=== PATIENT | male | born 1945 | race Two or more races ===

== ENCOUNTER 2016-08-09 12:17 | Inpatient (IN) | payer MEDICAID ==
[2016-08-09] VITALS (12 sets, daily range): BP systolic 112–136; BP diastolic 60–85
[~2016-08-09] VITALS: Ht 162.6 cm; Wt 54.4 kg
--- NOTE | 2016-08-09 12:17 | NUR ---
PT SELF PRESENTS TO ED: WEAKNESS, PALE SKIN, CHEST PAIN X 2 WKS. PLACED ON MONITOR. VSS. AWAITING MD ORDER
--- NOTE | 2016-08-09 12:37 | NUR ---
LAC #20 IV ACCESS. BLOOD SAMPLE COLLECTED SENT TO LAB
--- NOTE | 2016-08-09 12:42 | NUR ---
SOLE LEVELING MACHINE OPERATOR AT BEDSIDE
--- NOTE | 2016-08-09 12:46 | NUR ---
PANEL CALL. DR SPENCER PAGED.
[2016-08-09 12:51] LABS: BASOPHILS # (AUTO) 0.1 /CMM (0.0-0.2); BASOPHILS % (AUTO) 0.8 % (0.0-2.0); EOSINOPHILS # (AUTO) 0.3 /CMM (0.0-0.7); EOSINOPHILS % (AUTO) 3.1 % (0.0-6.0); LYMPHOCYTES # (AUTO) 2.2 /CMM (0.8-4.8); LYMPHOCYTES % (AUTO) 25.7 % (20.0-44.0); MEAN CORPUSCULAR HEMOGLOBIN 25 PG (26.0-33.0); MEAN CORPUSCULAR HGB CONC 32 g/dl (31.0-36.0); MEAN CORPUSCULAR VOLUME 77 fL (80-96); MONOCYTES # (AUTO) 0.5 /CMM (0.1-1.30); NEUTROPHILS # (AUTO) 5.5 /CMM (1.8-8.9); NEUTROPHILS % (AUTO) 64.4 % (43.0-81.0); PLATELET COUNT (AUTO) 283 /CMM (150-450); RDW COEFFICIENT OF VARIATION 17.7 (11.5-15.0); WHITE BLOOD COUNT (AUTO) 8.6 K/uL (4.3-11.0)
[2016-08-09 12:53] LABS: RED BLOOD CELL COUNT(AUTO) 1.86 MIL/uL (4.5-6.0)
[2016-08-09 12:58] LABS: CALCIUM, SERUM 7.8 mg/dL (8.5-10.1); CARBON DIOXIDE 28 mmol/L (21-32); CHLORIDE 108 mmol/L (98-107); GFR 74 mL/min (>60); GLUCOSE 106 mg/dL (74-106); HEMATOCRIT 14 % (39-51); HEMOGLOBIN 4.6 g/dL (13.5-17.5); POTASSIUM 4.6 mmol/L (3.5-5.1); SODIUM SERUM 140 mmol/L (136-145); UREA NITROGEN, BLOOD 21 mg/dL (7-18)
[2016-08-09 13:02] LABS: INR 1.01 (0.87-1.13); PROTHROMBIN TIME 10.5 SECS (9.5-12.7)
--- NOTE | 2016-08-09 13:03 | NUR ---
DR VICTORINO OLIVERA
[2016-08-09 13:05] LABS: ALANINE AMINOTRANSFERASE 33 U/L (12-78); ALBUMIN 3.3 g/dL (3.4-5.0); ALKALINE PHOSPHATASE 96 U/L (46-116); ASPARTATE AMINOTRANSFERASE 28 U/L (15-37); BILIRUBIN,DIRECT 0.1 mg/dL (0.0-0.2); BILIRUBIN,TOTAL 0.3 mg/dL (0.2-1.0); TROPONIN I < 0.017 ng/mL (0.00-0.056)
--- NOTE | 2016-08-09 13:32 | NUR ---
DR GLEASON SECOND PAGE
--- NOTE | 2016-08-09 13:49 | NUR ---
GAVE REPORT TO MIGUE HINTON COVERING FOR BUTCH. [facility] ROOM 109 . CHEST PAIN AND ADNEMIA. DR GLEASON ADMITTTING.
--- NOTE | 2016-08-09 14:15 | NUR ---
RN NOTES PT RECEIVED FROM ER IN ROOM 109, PT IS A/Ox4, UKRAINIAN SPEAKING , RESPIRATION EVEN AND UNLABORED, ON RA NO SOB NOTED O2 SAT 99%. ON TELE PT IS SR IN 80'S , AMBULATORY , L AC IV SITE G# 18 CDI, SR UP x3, BED LOCKED AND IN LOW POSITION , PT WILL RECEIVE BLOOD TRANSFUSION SOON THE BLOOD IS READY , NO SKIN ISSUE NOTED, CONTINUE TO MONITOR PT CLOSELY AND NOTIFY MD FOR ANY SIGNIFICANT CHANGES .
[2016-08-09 14:16] LABS: BAND % (MANUAL) 1 % (0.0-5.0); EOSINOPHILS % (MANUAL) 4 % (0-4); HYPOCHROMASIA 2+; LYMPHOCYTES % (MANUAL) 12 % (16-48); MONOCYTES % (MANUAL) 3 % (0-11.0); NEUTROPHILS % (MANUAL) 80 (42-76); PLATELET ESTIMATE ADEQUATE
[2016-08-09 14:17] LABS: ANISOCYTOSIS 3+
--- NOTE | 2016-08-09 14:17 | NUR ---
TRANSFER PT VIA ACLS PROTOCOL
[2016-08-09] MEDS ORDERED: IV NS 0.9% 250 ML IV ONE (14:40)
[2016-08-09] MEDS ORDERED: BLOOD IV SET 1 EA INFUS.SET MC ONE (14:40)
[2016-08-09] MEDS ORDERED: ONDANSETRON HCL/PF 4 MG/2 ML VIAL IV PRN (16:00)
[2016-08-09] MEDS ORDERED: ACETAMINOPHEN ES 500 MG TABLET PO PRN (16:00)
[2016-08-09] MEDS ORDERED: LOSA1TAB39 PO (16:15)
[2016-08-09] MEDS ORDERED: ENAL5TAB PO (16:15)
[2016-08-09] MEDS ORDERED: TAMS0.4C34 PO (16:15)
[2016-08-09] MEDS ORDERED: TERA2CAP4 PO (16:15)
[2016-08-09] MEDS ORDERED: CARV3.122 PO (16:15)
[2016-08-09] MEDS: CARVEDILOL 3.125 MG TABLET PO SCH (17:13)
[2016-08-09] MEDS: PANTOPRAZOLE 40 MG VIAL IV SCH (17:13)
--- NOTE | 2016-08-09 17:45 | NUR ---
RN NOTES FIRST UNIT OF PRBC COMPLETED PT TOLERATED WELL NO DISTRESS NOTED .
--- NOTE | 2016-08-09 18:44 | NUR ---
RN NOTES PT RECEIVING SECOND UNIT OF BLOOD , TOLERATING WELL , NO REACTION NOTED, SUPPORTIVE FAMILY AT THE BEDSIDE ,
--- NOTE | 2016-08-09 20:00 | NUR ---
RN NOTES - RECEIVED PATIENT IN BED ASLEEP WITH BREATHING NORMAL, EVEN AND UNLABORED. NO SOB NOTED. NO ACUTE DISTRESS NOTED. DENIES ANY PAIN OR DISCOMFORT. PT HAS L AC 18G PATENT AND INTACT. BOWEL SOUND PRESENT. PULSES PRESENT. PT IS RECEIVING 2ND PRBC/4 PRBC TOTAL. SAFETY MEASURE OBSERVED. ALL NEEDS ATTENDED. CALL LIGHT WITH IN REACH. WILL CONT TO MONITOR.
[2016-08-09] MEDS: TAMSULOSIN 0.4 MG CAP.SR.24H PO SCH (21:59)
[2016-08-09] MEDS ORDERED: FUROSEMIDE 40 MG/4 ML VIAL ONE (23:37)
--- NOTE | 2016-08-09 23:45 | NUR ---
PT COMPLAINING OF SHORTNESS OF BREATH, PT IS ON 3RD BAG OF BLOOD, PT WAS GIVEN TYLENOL AND I CALLED DR GLEASON, HE ORDERED 40 MG OF LASIX IV, GIVEN. PT EXPLAINED PLAN OF CARE, SHORTNESS OF BREATH RELIEVED, PT FEELING BETTER NOW
[2016-08-10] VITALS (10 sets, daily range): BP systolic 102–141; BP diastolic 56–90
[2016-08-10] MEDS ORDERED: FUROSEMIDE 40 MG/4 ML VIAL IV SCH
[2016-08-10] MEDS ORDERED: FUROSEMIDE 40 MG/4 ML VIAL IV ONE
[2016-08-10] MEDS ORDERED: IV SET PRIMARY PUMP SET 1 EA INFUS.SET MC ONE (03:48)
[2016-08-10 06:53] LABS: BASOPHILS # (AUTO) 0.1 /CMM (0.0-0.2); BASOPHILS % (AUTO) 1.1 % (0.0-2.0); EOSINOPHILS # (AUTO) 0.2 /CMM (0.0-0.7); EOSINOPHILS % (AUTO) 2.9 % (0.0-6.0); HEMATOCRIT 27 % (39-51); HEMOGLOBIN 8.7 g/dL (13.5-17.5); LYMPHOCYTES # (AUTO) 1.8 /CMM (0.8-4.8); LYMPHOCYTES % (AUTO) 24.1 % (20.0-44.0); MEAN CORPUSCULAR HEMOGLOBIN 26 PG (26.0-33.0); MEAN CORPUSCULAR HGB CONC 32 g/dl (31.0-36.0); MEAN CORPUSCULAR VOLUME 81 fL (80-96); MONOCYTES # (AUTO) 0.4 /CMM (0.1-1.30); MONOCYTES % (AUTO) 5.5 % (2.0-12.0); NEUTROPHILS # (AUTO) 4.8 /CMM (1.8-8.9); NEUTROPHILS % (AUTO) 66.4 % (43.0-81.0); PLATELET COUNT (AUTO) 181 /CMM (150-450); RED BLOOD CELL COUNT(AUTO) 3.33 MIL/uL (4.5-6.0); WHITE BLOOD COUNT (AUTO) 7.3 K/uL (4.3-11.0)
[2016-08-10 07:08] LABS: CALCIUM, SERUM 7.7 mg/dL (8.5-10.1); CREATININE 1.1 mg/dL (0.6-1.3); POTASSIUM 4.1 mmol/L (3.5-5.1)
[2016-08-10 07:51] LABS: THYROID STIMULATING HORMONE 2.249 uIU/mL (0.358-3.74)
--- NOTE | 2016-08-10 08:24 | NUR ---
RN NOTES DR GLEASON AT BEDSIDE, PLAN OF CARE DISCUSSED BY MD TO WITH PT AND , PT POSSIBLY FOR EGD TODAY. PER MD TO KEEP PT ON NPO.
[2016-08-10] MEDS: PANTOPRAZOLE 40 MG VIAL IV SCH ×2 (09:22→16:36)
[2016-08-10] MEDS: CARVEDILOL 3.125 MG TABLET PO SCH ×2 (09:22→16:42)
--- NOTE | 2016-08-10 09:26 | NUR ---
RN NOTES RECEIVED A CALL FROM OR SPOKE WITH RUPINDER, PER RUPINDER PT FOR EGD AT 1330 TODAY.
--- NOTE | 2016-08-10 15:13 | NUR ---
RN NOTES PT LEFT FOR EGD. PICKED UP BY PAT RN, TRANSPORTED TO OR VIA BED. FAMILY AT BEDSIDE.
[2016-08-10] MEDS ORDERED: PEG 3350/NA SULF,BICARB,CL/KCL 4,000 ML BOTTLE PO ONE (16:30)
--- NOTE | 2016-08-10 16:30 | NUR ---
RN NOTE PT CAME BACK FROM EGD, PER PAT RN REPORT PT WILL HAVE COLONOSCOPY NENA
--- NOTE | 2016-08-10 16:51 | NUR ---
RN NOTES DR GLEASON MADE AWARE PT NOT BEING DISCHARGE TODAY, PT FOR COLONOSCOPY NENA. DR GLEASON OKAYED
[2016-08-10] MEDS: TAMSULOSIN 0.4 MG CAP.SR.24H PO SCH (21:05)
[2016-08-11 04:00] VITALS: BP 129/72
[2016-08-11 05:37] LABS: BASOPHILS # (AUTO) 0.1 /CMM (0.0-0.2); BASOPHILS % (AUTO) 0.7 % (0.0-2.0); EOSINOPHILS # (AUTO) 0.2 /CMM (0.0-0.7); EOSINOPHILS % (AUTO) 2.5 % (0.0-6.0); HEMATOCRIT 28 % (39-51); HEMOGLOBIN 8.8 g/dL (13.5-17.5); LYMPHOCYTES # (AUTO) 1.2 /CMM (0.8-4.8); LYMPHOCYTES % (AUTO) 17.8 % (20.0-44.0); MEAN CORPUSCULAR HEMOGLOBIN 26 PG (26.0-33.0); MEAN CORPUSCULAR HGB CONC 32 g/dl (31.0-36.0); MEAN CORPUSCULAR VOLUME 80 fL (80-96); MONOCYTES # (AUTO) 0.5 /CMM (0.1-1.30); MONOCYTES % (AUTO) 6.9 % (2.0-12.0); NEUTROPHILS % (AUTO) 72.1 % (43.0-81.0); PLATELET COUNT (AUTO) 189 /CMM (150-450); RDW COEFFICIENT OF VARIATION 19.1 (11.5-15.0); RED BLOOD CELL COUNT(AUTO) 3.42 MIL/uL (4.5-6.0)
--- NOTE | 2016-08-11 05:51 | NUR ---
MS-1/FRANCISCO PT DECLINED 0500 ENEMA. PT STATES THAT HIS LAST BOWEL MOVEMENTS HAVE BEEN CLEAR LIKE WATER. WILL CONTINUE TO MONITOR. Addendum: 08/11/16 at 0552 by OBIE PURDY LVN Amended: Links added.
--- NOTE | 2016-08-11 06:43 | NUR ---
MS-1/TEMPLATE FITTER PT TAKEN TO SURGERY BY SURGERY TEAM. WILL ENDORSE TO AM SHIFT.
--- NOTE | 2016-08-11 07:45 | NUR ---
RN INITIAL NOTES: Pt rec'd from OR s/p colonoscopy in stable condition. Initial VS taken. Pt A/O x 3-4, not in any distress, denies any pain/ discomfort. Pt has L AC G18 PL patent & intact w/ 03/29 NS 1L + 20 meqs KCL x 75 cc/hr infusing well, no signs of infection/ infiltration noted. Call light placed w/in reach. Bed kept low & in locked position. Instructed to call RN or RADIO INTERFERENCE EXPERT if needs assistance, verbalized understanding. Will continue to monitor.
[2016-08-11 08:00] VITALS: BP 147/95
[2016-08-11 08:27] VITALS: BP 147/95
[2016-08-11] MEDS: PANTOPRAZOLE 40 MG VIAL IV SCH (08:27)
[2016-08-11] MEDS: CARVEDILOL 3.125 MG TABLET PO SCH (08:27)
--- NOTE | 2016-08-11 08:30 | NUR ---
RN NOTES: Noted & carried out DC orders from Dr. Arriaza.
[2016-08-11] MEDS ORDERED: ANESTHESIA TRAY IN PYXIS 1 EA TRAY MC ONE (08:32)
[2016-08-11] MEDS ORDERED: PANT40TA2 PO (09:07)
[2016-08-11] MEDS ORDERED: FERR-58 PO (09:08)
--- NOTE | 2016-08-11 12:00 | NUR ---
GAS JOCKEY NOTES: Pt DC to home w/ home health services as ordered. DC instructions and documents given to pt's son Nena w/ pt and at bedside, verbalized understanding. CM Jhony notified about home health service w/ response that he will follow up w/ pt's insurance first regarding this and will update pt afterward. Family made aware and gave CM contact info to follow up. IV line access removed, applied pressure dressing, no signs of infection/ infiltration noted. ID band removed. All belongings sent w/ pt. Belonging list signed by son. Offered wheelchair but pt refuses it. Pt left the facility ambulatory in stable condition accompanied by son, , and LACQUER SHADER Gloria.
== END 2016-08-11 12:28 | disposition home health service (06) | DRG 253 ==
LOC: ER 12:19 → TELE1 14:15 → TELE-TD 14:27 → MEDSG1 08-10 08:51
PROVIDERS: ADMIT Internal Medicine; ATTEND Internal Medicine
PROC: 30233N1 Transfusion of Nonautologous Red Blood Cells into Peripheral Vein, Percutaneous Approach (ICD-10-PCS; principal; 2016-08-09)
PROC: 0DB68ZX Excision of Stomach, Via Natural or Artificial Opening Endoscopic, Diagnostic (ICD-10-PCS; 2016-08-10)
PROC: 0DBM8ZZ Excision of Descending Colon, Via Natural or Artificial Opening Endoscopic (ICD-10-PCS; 2016-08-11)
DX: K55.21 Angiodysplasia of colon with hemorrhage (principal); D64.9 Anemia, unspecified; E61.1 Iron deficiency; I10 Essential (primary) hypertension; N40.0 Benign prostatic hyperplasia without lower urinary tract symptoms; F17.210 Nicotine dependence, cigarettes, uncomplicated; K20.9 Esophagitis, unspecified; K29.70 Gastritis, unspecified, without bleeding; D12.4 Benign neoplasm of descending colon; K57.30 Diverticulosis of large intestine without perforation or abscess without bleeding; K64.8 Other hemorrhoids
CPT/HCPCS: 36415; 71010-TC; 80048-TC; 80076-TC; 84443-TC; 84484-TC; 85025-TC; 85730-TC; 86850-TC; 86921-TC; 88305-TC; 88313-TC; 88342; A4606; A6253; A6403; C9113; J1940; J2704; J3480; J3490; J7050; P9016-BL; Z7610